=== PATIENT | female | born 2000 ===

== ENCOUNTER 2024-10-27 16:03 | Inpatient (IN) | payer OTHER ==
[~2024-10-27] VITALS: Ht 167.6 cm; Wt 52.1 kg
[2024-10-27] MEDS ORDERED: HYDPAM25 PO (21:13)
[2024-10-27] MEDS ORDERED: DiphenhydrAMINE HCl 50 MG/ML 1ML Vial IV PRN (21:40)
[2024-10-27] MEDS ORDERED: FLU VACC TS2024-25(6MOS UP)/PF 45 MCG/0.5 ML SYRINGE IM ONE (21:40)
[2024-10-27] MEDS ORDERED: Haloperidol 5 MG Tab PO PRN (21:40)
[2024-10-27] MEDS ORDERED: Ondansetron 4 MG SoluTab MM PRN (21:40)
[2024-10-27] MEDS ORDERED: Haloperidol Lactate Inj. 5 MG/ML Injection IM PRN (21:40)
[2024-10-27] MEDS ORDERED: DiphenhydrAMINE HCl 50 MG Cap PO PRN (21:40)
[2024-10-27] MEDS ORDERED: HydrOXYzine Pamoate 50 MG Cap PO PRN (21:40)
[2024-10-27] MEDS ORDERED: Polyethylene Glycol 3350 17 gm PO PRN (21:40)
[2024-10-27 21:45] VITALS: BP 118/95
[2024-10-27] MEDS ORDERED: Aluminum Hydroxide 320MG/5ML 473 ML PO PRN (21:45)
[2024-10-27] MEDS ORDERED: TraZODone HCl 50 MG Tab PO PRN (21:45)
[2024-10-27] MEDS ORDERED: OLANZapine ODT 10 MG Tab MM PRN (21:45)
[2024-10-27] MEDS ORDERED: Acetaminophen 325 MG TABLET PO PRN (21:45)
[2024-10-27] MEDS ORDERED: LORazepam 2 MG Tab PO PRN (21:45)
[2024-10-27] MEDS ORDERED: Calcium Carbonate 500 MG Tab Chew PO PRN (21:45)
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
[2024-10-27] MEDS ORDERED: LORazepam 2 MG/ML 1ML Injection IM PRN (21:50)
[2024-10-27] MEDS ORDERED: Melatonin 3 MG Tab PO PRN (21:50)
[2024-10-27] MEDS ORDERED: Ibuprofen 600 MG Tab PO PRN (21:50)
--- NOTE | 2024-10-27 23:58 | NUR ---
I washed and dried the items selected by the patient and their clothes are in white bags with the patients stickers on each bag. The bags were then placed in a tote, the tote was tagged and patient sticker is on the tote. Patients valuables are locked up in the safe with their name and room number on the packet.
--- NOTE | 2024-10-28 04:21 | NUR ---
PATIENT SPENT SOME TIME WITH HER PEERS BEFORE GOING TO BED. SHE WENT INTO THE DINING ROOM FOR SNACK TIME AND ATE 100%. SHE WENT TO BED AFTER SNACK BUT CAME OUT OF HER ROOM AND SAT DOWN BY THE DOOR IN THE HALLWAY FOR A TIME. SHE DENIED NEEDING ANYTHING AND WENT TO BED SHORTLY AFTER. SHE WAS NOTED TO BE RESTING QUIETLY WITH EYES CLOSED AND RESPIRATIONS CONFIRMED FOR THE REMAINDER OF THE SHIFT. SHE HAD NO S/SX SUICIDAL IDEATION OR SELF HARM THIS SHIFT. CONTINUING TO MONITOR FOR SAFETY WITH Q15 MINUTE CHECKS.
[2024-10-28 07:47] VITALS: BP 121/86
--- NOTE | 2024-10-28 08:44 | NUR ---
SHIFT SUMMARY: PT DENIED SI, HI, AVH AND PAIN. SHE ENDORSED ANXIETY 10/10w, VISTARIL 50MG OFFERED AND DECLINED, "I REALLY WANT TO WAIT TO TALK TO THE DOCTOR, I'VE TRIED A LOT OF MEDS INCLUDING THAT ONE AND HAVE HAD A LOT OF SIDE EFFCTS...." PT'S AFFECT WAS CONSTRICTED, SHE IS VERY ARTICULATE, SOFT SPOKEN WITH GOOD GROOMING. ANOTHER PT HAS SENT HER TO CARRY MESSAGES TO STAFF, SHE WAS DIRECTED TO HAVE THAT PT COME TO STAFF WITH HER OWN NEEDS. PT IS ATTENDING GROUP AND REPORTED THAT SHE WANTS TO MAKE A COLLAGE DURING GROUP TIME.
[2024-10-28] MEDS ORDERED: Multivitamins 1 Tab PO SCH (09:00)
[2024-10-28] MEDS ORDERED: BusPIRone HCl 5 MG Tab PO PRN (11:10)
[2024-10-28] MEDS ORDERED: BusPIRone HCl 10 MG Tab PO SCH (12:00)
--- NOTE | 2024-10-28 12:14 | NUR ---
NURSES NOTE: PT WAS ON THE PHONE AND WALKED INTO HER ROOM WITH IT. MHA REMINDED HER THAT THE PHONE WAS NOT ALLOWED IN THE ROOM AND THEY OPENED THE SENSORY ROOM FOR HER TO USE PHONE IN. PT WALKED FAST TO THE SENSORY ROOM AND BECAME TEARFUL. SHE THEN WENT TO LUNCH AND CONTINUED BEING TEARFUL IN THE DINNING ROOM AND ESCELATING. PT STATES SHE FELT LIKE STAFF WAS YELLING AT HER AND NOT UNDERSTANDING HER. MHA REPORTS THAT AFTER RN LEFT DINNING AREA FROM TALKING TO HER SHE STARTED SAYING THAT NOBODY HERE LISTENS TO HER OR WANTS TO UNDERSTAND HER AND SHE SHOULD JUST LEAVE. SPOKE TO PT IN HER ROOM AND SHE WAS MORE CALM. MEDICATED HER WITH NEWLY ORDERED BUSPAR AND PRN HYDROXIZYNE. WILL CONTINUE WITH 15 MIN CHECKS AND REPORT TO PRIMARY RN HEATHER.
--- NOTE | 2024-10-28 13:44 | NUR ---
PT DENIED SI, HI, AND AVH. SHE WAS SOBBING IN HER ROOM. SHE WAS DIRECTED TO SLOW HER BREATHING AND BREATH IN FOR THE COUNT OF FOUR, HOLD FOR THE COUNT OF FOUR AND BREATH OUT FOR THE COUNT OF FOUR. SHE COMPLIED WITH THE DIRECTION AND CALMED HERSELF AND THEN ATE 40% LUNCH AND HAS BEEN IN A GOOD MOOD SINCE. SHE IS IN GROUP AND IS VISITING WITH HER PEERS.
--- NOTE | 2024-10-28 14:20 | NUR ---
PT PARTICIPATED IN THE COMMUNITY MEETING, SHE HAS GOALS TO "GO ON MEDICATION AND WORK ON ART." SHE IS GRATEFUL FOR ANOTHER PT ON THE [place]. SHE IS FEELING "ANXIOUS."
[2024-10-28 22:30] VITALS: BP 136/98
--- NOTE | 2024-10-29 05:49 | NUR ---
SHIFT SUMMARY Pt is A&O, calm, cooperative, eye contact is appropriate. Pt states her mood is "neutral, somethimes anxious." Affect is constricted. Pt rated her anxiety 4/10w, "somethimes 6 when I start thinking about my situation." Pt denies SI, HI, and hallucinations. She also denies pain or other medical issues. Pt stated that she "can't go back home, that's what made me crazy." She goes on to describe the conflict wiht her grandmother. Pt sated that her girlfriend is looking into moving to [place] and was expression anxiety about her potential living situation. Pt was active on the milieu throughout the evening. She received PRN melatonin during HS med pass. Staff continues to monitor for safety and wellness.
[2024-10-29 08:21] VITALS: BP 118/71
--- NOTE | 2024-10-29 17:14 | NUR ---
SHIFT SUMMARY PT A/O X4; PLEASANT AND COOPERATIVE WITH CARE. SHE REPORTS SOME INTRUSIVE SUICIDAL THOUGHTS WITH NO INTENT TO ACT ON THEM THIS MORNING. SHE DID NOT SLEEP WELL LAST NIGHT AND REPORTED THAT SHE EXPERIENCED SOME ANXIETY/PANIC OVER NOT BEING ABLE TO SLEEP. PT GIVEN PRN MEDICATION WITH GOOD EFFECT. SHE DENIES HI OR ANY HALLUCINATIONS. SHE PARTICIPATES IN ALL MEALS, GROUPS, AND MILEU ACTIVITIES. SHE REPORTS FEELING MORE TIRED THROUGHOUT THE DAY AND FEELS SHE MAY BE ABLE TO SLEEP TONIGHT. PT ALSO EDUCATED ON TRAZADONE AND REPORTS THAT SHE MAY TRY IT TONIGHT TO TRY TO SLEEP.
[2024-10-29] MEDS ORDERED: BusPIRone HCl 10 MG Tab PO SCH (21:00)
[2024-10-29 23:47] VITALS: BP 120/95
--- NOTE | 2024-10-30 05:46 | NUR ---
SHIFT SUMMARY Pt A&O, calm, cooperative, eye contact is appropriate. Pt stated her mood was "anxious," rating her anxiety as 4/10w; affect is bright and euthymic. Pt denies SI, HI, and hallucinations. She also denied current pain or other medical issues. Pt stated that she was happy that the provider increased her dose of buspirone; "hopefully it will help prevent my morning anxiety episodes." Pt spent the evening in the dayroom journaling and pleasantly interacting with peers and staff. She approached the nurses station at about 0545 and stated that she slept very well overnight. Staff continues to monitor for safety and wellness.
[2024-10-30 08:17] VITALS: BP 137/90
--- NOTE | 2024-10-30 18:09 | NUR ---
SHIFT SUMMARY PT A/O X4; PLEASANT AND COOPERATIVE WITH CARE. SHE DENIES SI, HI, OR ANY HALLUCINATIONS. PT REPORTS THAT HER ANXIETY IS DOING MUCH BETTER TODAY SINCE HER BUSPAR WAS INCREASED. PT SLEPT WELL LAST NIGHT, WHICH HELPED WELL. SHE DID HAVE A MOMENT DURING GROUP WHERE ANOTHER PATIENT'S YELLING MADE HER ANXIOUS, BUT SHE WAS ABLE TO USE HER COPING SKILLS WELL. SHE ATTENDED ALL MEALS AND GROUPS TODAY.
[2024-10-30 21:21] VITALS: BP 127/88
--- NOTE | 2024-10-31 05:26 | NUR ---
SHIFT SUMMARY Pt is A&O, calm, cooperative, eye contact is appropriate. Pt stated that her mood was "good;" affect is euthymic and bright. Pt denies SI, HI, and hallucinations. She also denies pain or other medical issues. Pt stated that she woke up in the morning and did not experience any of her usual anxiety, and feels that this is due to her increased buspirone dose. Pt stated, "I'm feeling creative, fine, I'm good" and related that she spent much of the day doing creative activities in the group room. Pt stated that she has some "deep" cavities and has not been able to schedule a dental appointment before March and would like to see the dental hygienist; consult placed by this video games storywriter. Staff continues to monitor for safety and wellness.
[2024-10-31 08:23] VITALS: BP 120/91
--- NOTE | 2024-10-31 17:56 | NUR ---
SHIFT SUMMARY PT HAS BEEN UP ALL DAY, VERY ACTIVLY PARTICIPATING IN ALL GROUPS AND MEALS, SHE HAS DENIED SI/HI/AVH. HER PLAN AT THIS TIME IS TO D/C ON THE METAL POLISHER OF 11/02/24 TO CATCH A FLIGHT IN [place] AT 0500 TO [place]. SHE WILL BE MET AND PICKED UP IN [place] BY HER S/O AND THE S/O'S MOTHER. PT IS VERY EXCITED TO BE DISCHARGED. PT CONTINUES WITH SAFETY CHECKS Q15 MIN
[2024-10-31 20:51] VITALS: BP 116/84
--- NOTE | 2024-11-01 05:21 | NUR ---
SHIFT SUMMARY Pt is A&O, calm, cooperative, eye contact is appropriate. Pt stated that her mood was "good, excited." Affect is euthymic and full. Pt denied SI, HI, and hallucinations. Pt stated that she is excited about d/c on Thursday and is looking forward to getting back to [place] and looking for a job. She received PRN melatonin after attempting to sleep for about an hour. Staff continues q15m monitoring for safety and wellness.
[2024-11-01 07:57] VITALS: BP 119/87
--- NOTE | 2024-11-01 17:24 | NUR ---
SHIFT SUMMARY PT A/O X4; PLEASANT AND COOPERATIVE WITH CARE. SHE DENIES SI, HI, OR ANY HALLUCINATIONS. PT IS EXCITED TO DISCHARGE AND WILL BE GOING TO [place]. PT IS TO DISCHARGE VERY EARLY 11/03/24 IN THE MORNING. COPY OF PT'S PLANE TICKETS ARE IN THE CHART. SHE ATTENDED ALL MEALS AND GROUPS THIS SHIFT. SHE CONTINUES TO BE MONITORED VIA Q15 ROUNDING FOR SAFETY.
[2024-11-01 22:03] VITALS: BP 125/93
--- NOTE | 2024-11-02 04:08 | NUR ---
SHIFT SUMMARY PT RESTING IN BED AT START OF SHIFT. SHE DENIES ANY SI, HI OR HALLUCINATIONS. PT REPORTS SHE IS EXCITED TO BE DISCHARGED AND SEE HER GIRLFRIEND. PT GOT UP FOR EVENING SNACK, WAS INTERACTIVE WITH PEERS AND STAFF. PT HAD EVENING MEDS AND REQUESTED AND RECIEVED PRN MELATONIN. SHE WENT TO HER ROOM AROUND 2114 AND HAS APPEARED TO SLEEP WELL, RESPIRATIONS CONFIRMED. Q15 MINUTE CHECKS BY STAFF PER UNIT PROTOCOL TO CONTINUE.
[2024-11-02 08:08] VITALS: BP 130/105
[2024-11-02] MEDS ORDERED: BUSP5 PO (11:47)
[2024-11-02] MEDS ORDERED: HYDPAM50 PO (11:48)
[2024-11-02] MEDS ORDERED: Buspirone HCl15 MG PO (11:48)
[2024-11-02] MEDS ORDERED: MELA3 PO (11:49)
--- NOTE | 2024-11-02 18:48 | NUR ---
SHIFT SUMMARY PT A/O X4; PLEASANT AND COOPERATIVE WITH CARE. PT DENIES SI, HI, OR ANY HALLUCINATIONS. PT TO DISCHARGE TOMORROW MORNING AT 2 AM. SHE IS TO GO [place] AND GET ON A FLIGHT TO [place]. DISCHARGE PAPER WORK WITH PLANE TICKETS IN THE CHART. PT MEDICATIONS PICKED UP FROM [facility] AND STORED IN THE MED ROOM IN THE PATIENT'S BIN.
[2024-11-02 22:48] VITALS: BP 118/92
--- NOTE | 2024-11-02 23:42 | NUR ---
DISCHARGE SUMMARY PT IN GROUP ROOM AT START OF SHIFT, INTERACTIVE WITH STAFF AND PEERS. SHE DENIED ANY SI, HI OR HALLUCIANTIONS. SHE REPORTED THAT SHE WAS LOOKING FORWARD TO BEING DISCHARGED, BUT WAS A LITTLE ANXIOUS. PT RESTED IN HER ROOM AFTER EVENING SNACK UNTIL [facility] ARRIVED FOR TRANSPORT. REVIEWED DISCHARGE INSTRUCTIONS WITH THE PATIENT. INSTRUCTED TO FOLLOW UP RECOMMENDED, TAKE ALL MEDS PRESCRIBED AND TO GO TO THE ER IF SYMPTOMS REOCCUR. PT RECEIVED PRESCRIPTIONS THAT HAD BEEN FILLED, ALONG WITH DISCHARGE PAPERWORK AND HER PLANE TICKET. BELONGINGS RETURNED AND PT ESCORTED OFF THE UNIT AT 2335. [facility] TRANSPORTING THE PATIENT TO [facility] FOR FLIGHT TO [place].
== END 2024-11-02 23:35 | disposition home or self-care (01) | DRG 880 ==
LOC: BHU 16:03
PROVIDERS: ADMIT Student in an Organized Health Care Education/Training Program
DX: F41.1 Generalized anxiety disorder (principal); R45.851 Suicidal ideations; F43.12 Post-traumatic stress disorder, chronic; Z56.0 Unemployment, unspecified; Z79.899 Other long term (current) drug therapy
CPT/HCPCS: A9270